=== PATIENT | male | born 1995 | race Caucasian/White ===

== ENCOUNTER 2016-04-22 13:13 | Emergency (ER) | payer OTHER ==
[2016-04-22 13:22] VITALS: TEMP 98.2
[2016-04-22] MEDS ORDERED: ONDANSETRON 4 MG/2 ML VIAL IVP ONE (15:12)
[2016-04-22] MEDS ORDERED: NS 1,000 ML IV ONE ×3 (15:12→15:18)
--- NOTE | 2016-04-22 15:21 | EDPHY ---
H & P Stated Complaint: nausea, vomit, diarrhea, out of zofran given at urgent care Time Seen by Provider: 04/22/16 15:14 HPI/ROS: CHIEF COMPLAINT: Vomiting and diarrhea HISTORY OF PRESENT ILLNESS: The patient is a 20-year-old healthy man who comes to the emergency department complaining of nausea, vomiting and diarrhea for the last week. He was seen on Sunday at urgent care is prescribe Zofran. This controlled his symptoms until he ran out yesterday. Since then he has been vomiting any time he tries to eat or drink. He is also having diarrhea about every 5-6 hours. It is watery and non formed. He has not had a fever. He denies abdominal pain. He has not traveled outside of the country. He has not had any recent antibiotic use. He has not been drinking any unfiltered water. REVIEW OF SYSTEMS: Constitutional: denies: chills, fever, recent illness, recent injury EENTM: denies: blurred vision, double vision, nose congestion Respiratory: denies: cough, shortness of breath Cardiac: denies: chest pain, irregular heart rate, lightheadedness, palpitations Gastrointestinal/Abdominal: See HPI Genitourinary: denies: dysuria, frequency, hematuria, pain Musculoskeletal: denies: joint pain, muscle pain Skin: denies: lesions, rash, jaundice, bruising Neurological: denies: headache, numbness, paresthesia, tingling, dizziness, weakness Hematologic/Lymphatic: denies: blood clots, easy bleeding, easy bruising Immunologic/allergic: denies: HIV/AIDS, transplant EXAM: GENERAL: Well-appearing, well-nourished and in no acute distress. HEAD: Atraumatic, normocephalic. EYES: Pupils equal round and reactive to light, extraocular movements intact, sclera anicteric, conjunctiva are normal. ENT: TMs normal, nares patent, oropharynx clear without exudates. Moist mucous membranes. NECK: Normal range of motion, supple without lymphadenopathy or JVD. LUNGS: Breath sounds clear to auscultation bilaterally and equal. No wheezes rales or rhonchi. HEART: Regular rate and rhythm without murmurs, rubs or gallops. ABDOMEN: Soft, nontender, normoactive bowel sounds. No guarding, no rebound. No masses appreciated. BACK: No CVA tenderness, no spinal tenderness, step-offs or deformities EXTREMITIES: Normal range of motion, no pitting or edema. No clubbing or cyanosis. NEUROLOGICAL: Cranial nerves II through XII grossly intact. Normal speech, normal gait. 5/5 strength, normal movement in all extremities, normal sensation PSYCH: Normal mood, normal affect. SKIN: Warm, dry, normal turgor, no visible rashes or lesions. Source: Patient Exam Limitations: No limitations - Personal History Current Tetanus/Diphtheria Vaccine: Unsure Current Tetanus Diphtheria and Acellular Pertussis (TDAP): Unsure - Medical/Surgical History Hx Asthma: No Hx Chronic Respiratory Disease: No Hx Diabetes: No Hx Cardiac Disease: No Hx Renal Disease: No Hx Cirrhosis: No Hx Alcoholism: No Hx HIV/AIDS: No Hx Splenectomy or Spleen Trauma: No Other PMH: denies - Family History Significant Family History: No pertinent family hx - Social History Smoking Status: Never smoked Alcohol Use: Sober Drug Use: None Constitutional: Initial Vital Signs Temperature (C) 36.8 C 04/22/16 13:19 Heart Rate 70 04/22/16 13:19 Respiratory Rate 16 04/22/16 13:19 Blood Pressure 115/70 04/22/16 13:19 O2 Sat (%) 95 04/22/16 13:19 O2 Delivery Mode Room Air Allergies/Adverse Reactions: No Known Allergies Allergy (Unverified 04/22/16 13:18) Home Medications: Medication Instructions Recorded Loperamide HCl [Imodium A-D] 2 mg PO Q4-6PRN PRN #20 tablet 04/22/16 Ondansetron Odt [Zofran Odt 4 mg 4 mg PO Q4 PRN #20 tab 04/22/16 (RX)] Medical Decision Making ED Course/Re-evaluation: 4:30 p.m. the patient is doing well. He has received 1 L out of 2. His abdominal exam remains benign. His lab work is reassuring. We discussed this. He is requesting Imodium as well. Patient continues to feel well. He is eager to go home. I will prescribe Zofran and Imodium. Discussed indications for returning. He is well appearing. Differential Diagnosis: Partial list of the Differential diagnosis considered include but were not limited to; vomiting, diarrhea, gastroenteritis, dehydration and although unlikely based on the history and physical exam, I also considered food poisoning, C difficile, appendicitis, biliary disease, liver disease, obstruction. I discussed these differential diagnoses and the plan with the patient as well as the usual and expected course. The patient understands that the diagnosis is provisional and that in medicine we are not always correct and that further workup is often warranted. Usual and customary warnings were given. All of the patient's questions were answered. The patient was instructed to return to the emergency department should the symptoms at all worsen or return, otherwise to followup with the physician as we discussed. - Data Points Laboratory Results: Laboratory Results 04/22/16 15:20 04/22/16 15:20 04/22/16 15:20 WBC 10.95 H 10^3/uL (3.80-9.50) RBC 6.25 10^6/uL (4.40-6.38) Hgb 18.5 H g/dL (13.7-17.5) Hct 52.3 H % (40.0-51.0) MCV 83.7 fL (81.5-99.8) MCH 29.6 pg (27.9-34.1) MCHC 35.4 g/dL (32.4-36.7) RDW 12.2 % (11.5-15.2) Plt Count 396 10^3/uL (150-400) MPV 9.4 fL (8.7-11.7) Neut % (Auto) Not Reported Lymph % (Auto) Not Reported Ocean % (Auto) Not Reported Eos % (Auto) Not Reported Baso % (Auto) Not Reported Nucleat RBC Rel Count 0.0 % (0.0-0.2) Absolute Neuts (auto) Not Reported Absolute Lymphs (auto) Not Reported Absolute Monos (auto) Not Reported Absolute Eos (auto) Not Reported Absolute Basos (auto) Not Reported Absolute Nucleated RBC 0.00 10^3/uL (0-0.01) Immature Gran % Not Reported Seg Neutrophils % 44 % Band Neutrophils % 17 % Lymphocytes % 32 % Monocytes % 7 % Immature Gran # Not Reported Absolute Seg Neuts 4.82 10^/uL (1.70-6.50) Absolute Band Neuts 1.86 H 10^3/uL (0.00-0.70) Absolute Lymphocytes 3.50 H 10^3/uL (1.00-3.00) Absolute Monocytes 0.77 10^3/uL (0.30-0.80) Atypical Lymphocytes 2+ H Platelet Estimate ADEQUATE (ADEQ) Large Platelets PRESENT H Echinocytes 3+ H Smear Review By Pending Sodium 138 mEq/L (134-144) Potassium 3.8 mEq/L (3.5-5.2) Chloride 94 L mEq/L (97-110) Carbon Dioxide 28 mEq/l (22-31) Anion Gap 16 mEq/L (8-16) BUN 16 mg/dL (7-23) Creatinine 1.0 mg/dL (0.7-1.3) Estimated GFR > 60 Glucose 90 mg/dL (70-100) Calcium 9.4 mg/dL (8.5-10.4) Total Bilirubin 0.7 mg/dL (0.1-1.4) Conjugated Bilirubin 0.3 mg/dL (0.0-0.5) Unconjugated Bilirubin 0.4 mg/dL (0.0-1.1) AST 23 IU/L (17-59) ALT 39 IU/L (21-72) Alkaline Phosphatase 104 IU/L (38-126) Total Protein 7.3 g/dL (6.3-8.2) Albumin 4.1 g/dL (3.5-5.0) Lipase 96.0 IU/L (23-300) Medications Given: Discontinued Medications Sodium Chloride (Ns) 1,000 mls @ 0 mls/hr IV ONCE ONE PRN Reason: Wide Open Stop: 04/22/16 15:13 Last Admin: 04/22/16 15:21 Dose: 1,000 mls Sodium Chloride (Ns) 1,000 mls @ 0 mls/hr IV ONCE ONE PRN Reason: Wide Open Stop: 04/22/16 15:19 Last Admin: 04/22/16 15:21 Dose: 1,000 mls Sodium Chloride (Ns) 1,000 mls @ 0 mls/hr IV ONCE ONE PRN Reason: Wide Open Stop: 04/22/16 15:19 Last Admin: 04/22/16 16:17 Dose: 1,000 mls Loperamide HCl (Imodium) 4 mg PO EDNOW ONE Stop: 04/22/16 16:35 Last Admin: 04/22/16 16:38 Dose: 4 mg Ondansetron HCl (Zofran) 4 mg IVP EDNOW ONE Stop: 04/22/16 15:13 Last Admin: 04/22/16 15:21 Dose: 4 mg Departure - Departure Disposition: Home, Routine, Self-Care Clinical Impression: Acute gastroenteritis Condition: Fair Instructions: Gastroenteritis (ED) Referrals: NONE *PRIMARY CARE P,. [Primary Care Provider] - As per Instructions Prescriptions: Loperamide HCl [Imodium A-D] 2 mg PO Q4-6PRN PRN #20 tablet PRN Reason: Diarrhea/Loose Stools Ondansetron Odt [Zofran Odt 4 mg (RX)] 4 mg PO Q4 PRN #20 tab PRN Reason: Nausea & Vomiting
[2016-04-22 15:46] LABS: ALANINE AMINOTRANSFERASE 39 IU/L (21-72); ALBUMIN 4.1 g/dL (3.5-5.0); ALKALINE PHOSPHATASE 104 IU/L (38-126); ANION GAP 16 mEq/L (8-16); ASPARTATE AMINOTRANSFERASE 23 IU/L (17-59); BILIRUBIN,TOTAL 0.7 mg/dL (0.1-1.4); BILIRUBIN-CONJUGATED 0.3 mg/dL (0.0-0.5); BILIRUBIN-UNCONJUGATED 0.4 mg/dL (0.0-1.1); CALCIUM 9.4 mg/dL (8.5-10.4); CARBON DIOXIDE 28 mEq/l (22-31); CHLORIDE 94 mEq/L (97-110); GLOMERULAR FILTRATION RATE > 60; GLUCOSE 90 mg/dL (70-100); POTASSIUM 3.8 mEq/L (3.5-5.2); SODIUM 138 mEq/L (134-144); TOTAL PROTEIN 7.3 g/dL (6.3-8.2)
[2016-04-22 15:49] LABS: ADD DIFF? YES; ADD MORPH? NO; FRAGMENT RBC FLAG 0 (0-99); HEMATOCRIT 52.3 % (40.0-51.0); HEMOGLOBIN 18.5 g/dL (13.7-17.5); LEFT SHIFT FLG 70 (0-99); LIPEMIA HEMOLYSIS FLAG 90 (0-99); MEAN CELL HEMOGLOBIN 29.6 pg (27.9-34.1); MEAN CELL HEMOGLOBIN CONCENTR. 35.4 g/dL (32.4-36.7); MEAN CELL VOLUME 83.7 fL (81.5-99.8); MEAN PLATELET VOLUME 9.4 fL (8.7-11.7); PLATELET CLUMPS FLAG 10 (0-99); PLATELET COUNT 396 10^3/uL (150-400); RED BLOOD CELL COUNT 6.25 10^6/uL (4.40-6.38); RED CELL DISTRIBUTION WIDTH 12.2 % (11.5-15.2)
[2016-04-22 15:57] LABS: ADD SCAN? NO; ATYPICAL LYMPHOCYTE FLAG 130 (0-99)
[2016-04-22 16:18] VITALS: RESP 18; O2SAT 96
[2016-04-22] MEDS ORDERED: LOPERAMIDE HCL 2 MG CAP PO ONE (16:34)
[2016-04-22 16:39] LABS: ECHINOCYTES 3+; PLATELET ESTIMATE ADEQUATE (ADEQ)
[2016-04-22 16:40] VITALS: BP 114/62; PULSE 68
[2016-04-22 16:41] LABS: LARGE PLATELETS PRESENT
== END 2016-04-22 17:02 | disposition home or self-care (01) ==
DX: K52.9 Noninfective gastroenteritis and colitis, unspecified (principal)
CPT/HCPCS: 96374; J2405